=== PATIENT | male | born 1985 | race Two or more races ===

== ENCOUNTER 2020-02-18 18:22 | Emergency (ER) | payer SELFPAY ==
[~2020-02-18] VITALS: Ht 160 cm; Wt 56.0 kg
[2020-02-18] MEDS ORDERED: ERYT1OIN6 OD (20:21)
[2020-02-18] MEDS ORDERED: OLOP5DRO13 EACHEYE (20:21)
[2020-02-18] MEDS ORDERED: CETI10TA16 PO (20:21)
--- NOTE | 2020-02-18 20:22 | PHYS DOC ---
Past Medical History Past Medical History: No Pertinent History Past Surgical History: No Surgical History Smoking Status: Unknown if ever smoked Alcohol Use: None Drug Use: None General Adult EDM: Chief Complaint: EYE PROBLEMS HPI: HPI: Patient is a 34 year old male, accompanied by family member, who presents to the emergency department with complaints of bilateral eye itching, and watering, with a runny nose that began a week ago. For the last 2 days the patient's eyes have been crusted shut. Patient denies any shortness of breath, cough, nausea, vomiting, diarrhea, abdominal pain, body aches, fatigue. He denies any new medications, detergents, or environmental exposures. The patient reports that the symptoms become more severe whenever he goes outside. He denies any pain. The patient's family member translated for the patient as he is non-Danish speaking. Review of Systems: Review of Systems: Constitutional: Denies fever or chills. [] Eyes: Denies change in visual acuity; see HPI. [] HENT: ; See HPI Respiratory: Denies cough or shortness of breath. [] Cardiovascular: Denies chest pain or edema. [] GI: Denies abdominal pain, nausea, vomiting Musculoskeletal: Denies back pain or joint pain. [] Integument: Denies rash. [] Neurologic: Denies headache Lymphatic: Denies swollen glands. [] Psychiatric: Denies depression or anxiety. [] Heart Score: Risk Factors: Risk Factors: DM, Current or recent (<one month) smoker, HTN, HLP, family history of CAD, obesity. Risk Scores: Score 0 - 3: 2.5% MACE over next 6 weeks - Discharge Home Score 4 - 6: 20.3% MACE over next 6 weeks - Admit for Clinical Observation Score 7 - 10: 72.7% MACE over next 6 weeks - Early Invasive Strategies Physical Exam: PE: Constitutional: Well developed, well nourished, no acute distress, normal appearance HENT: Normocephalic, atraumatic, bilateral external ears normal, bilateral TMs normal, posterior pharynx congested, oropharynx moist, nose congested with erythema and edema of the nasal turbinates bilaterally Eyes: PERRLA, conjunctiva injected bilaterally, watery discharge bilaterally, EOMI. [] Neck: Normal range of motion, no stridor. [] Cardiovascular:Heart rate regular rhythm, no murmur [] Lungs & Thorax: Bilateral breath sounds clear to auscultation, Respirations even and unlabored, no retractions, no respiratory distress Skin: Warm, dry, no erythema, no rash. [] Extremities: No cyanosis, ROM intact Neurologic: Alert and oriented X 3, no focal deficits noted. [] Psychologic: Affect normal, judgement normal, mood normal. EKG: EKG: [] Radiology/Procedures: Radiology/Procedures: [] Course & Med Decision Making: Course & Med Decision Making Pertinent Labs and Imaging studies reviewed. (See chart for details) [] Dragon Disclaimer: Drag[employer] Disclaimer: This electronic medical record was generated, in whole or in part, using a voice recognition dictation system. Departure Departure Impression: Primary Impression: Allergic conjunctivitis and rhinitis Qualified Codes: H10.13 - Acute atopic conjunctivitis, bilateral; J30.9 - Allergic rhinitis, unspecified Additional Impression: Conjunctivitis Qualified Codes: H10.33 - Unspecified acute conjunctivitis, bilateral Disposition: HOME, SELF-CARE Condition: STABLE Referrals: NO PCP (PCP) Patient Instructions: Allergic Conjunctivitis, [id number], Allergic Rhinitis, Bacterial Conjunctivitis, [id number] Additional Instructions: Fill the prescription(s) and use as directed. You may take Tylenol or ibuprofen as needed for pain/fever. Increase clear fluids. Avoid triggers such as smoke, fragrance, dust, and pollen. Follow-up with your primary care doctor if symptoms persist, return to the ER if symptoms worsen. Scripts Olopatadine HCl (Olopatadine HCl) 5 Ml Drops 1 DROP EACHEYE BID for 30 Days, #5 ML 0 Refills Prov: SHONDA CHAVEZ APRN 02/18/20 Erythromycin Base (Erythromycin) 1 Gm Oint...g. 0.5 INCH OD QID for 5 Days, #1 TUBE 0 Refills Prov: SHONDA CHAVEZ APRN 02/18/20 Cetirizine Hcl (CETIRIZINE HCL) 10 Mg Tablet 1 TAB PO HS for 30 Days, #30 TAB 1 Refill Prov: SHONDA CHAVEZ APRN 02/18/20 Justicifation of Admission Dx: Justifications for Admission: Justification of Admission Dx: N/A SHONDA CHAVEZ APRN Feb 18, 2020:22
[2020-02-18 20:57] VITALS: BP 134/93
== END 2020-02-18 21:13 | disposition home or self-care (01) ==
LOC: ER 18:22
DX: H10.13 Acute atopic conjunctivitis, bilateral (principal); J30.9 Allergic rhinitis, unspecified; H10.33 Unspecified acute conjunctivitis, bilateral
CPT/HCPCS: 99283